=== PATIENT | male | born 1980 | race Caucasian/White ===

== ENCOUNTER → 2018-04-21 16:51 | Outpatient (CLI) | payer BC, SELFPAY ==
[2018-04-21 17:35] LABS: Add Manual Diff / Slide Review NO; Basophils Percent Auto 0.9 % (0-2); Eosinophils Percent Auto 1.7 % (2-4); Hematocrit 43.8 % (41-53); Hemoglobin 15.5 g/dL (13.5-17.5); Lymphocytes Percent Auto 30.7 % (25-40); Mean Corpuscular HGB Conc 35.5 % (30-36); Mean Corpuscular Hemoglobin 32.6 PG (26-34); Monocytes Percent Auto 6.8 % (3-14); Neutrophils Absolute Auto 4400 /uL (3000-5900); Neutrophils Percent Auto 59.9 % (50-75); Platelet Count 201 X10^3/uL (150-400); Red Blood Cell Count 4.76 X10^6/uL (4.5-5.9); Red Cell Distribution Width 12.4 % (11.6-14.8); White Blood Cell Count 7.3 X10^3/uL (4.5-11.0)
[2018-04-21 17:59] LABS: Erythrocyte Sedimentation Rate 2 MM/HR (0-15)
[2018-04-21 18:04] LABS: Uric Acid 6.5 mg/dL (3.5-8.5)
[2018-04-21 18:07] LABS: Rheumatoid Factor 14.9 IU/mL (<12.0)
[2018-04-23 20:10] LABS: ANA Screen, IFA Negative (Negative)
== END ==
PROVIDERS: Family Provider Family Medicine; PCP Family Medicine; Visit Provider Family Medicine
DX: M25.572 Pain in left ankle and joints of left foot (principal)
CPT/HCPCS: 36415; 84550; 85025; 85651; 86038; 86430

== ENCOUNTER → 2018-08-05 09:03 | Outpatient (CLI) | payer BC, SELFPAY ==
[2018-08-05 13:00] LABS: Uric Acid 5.2 mg/dL (3.5-8.5)
== END ==
PROVIDERS: Family Provider Family Medicine; PCP Family Medicine; Visit Provider Internal Medicine Rheumatology
DX: M10.00 Idiopathic gout, unspecified site (principal)
CPT/HCPCS: 36415; 84550

== ENCOUNTER → 2019-02-11 06:55 | Outpatient (CLI) | payer BC, SELFPAY ==
[2019-02-11 09:01] LABS: Cholesterol 246 mg/dL (140-199); HDL Cholesterol 47 mg/dL (40-60); LDL Cholesterol Calculated 159 mg/dL (<100); Triglycerides 198 mg/dL (35-150)
[2019-02-11 10:26] LABS: Thyroid Stimulating Hormone 2.68 uIU/mL (0.47-4.68)
[2019-02-11 12:21] LABS: Alanine Aminotransferase 39 IU/L (21-72); Albumin 4.7 g/dL (3.5-5.0); Albumin Globulin Ratio 1.8 (1.0-2.8); Alkaline Phosphatase 70 U/L (38-126); Aspartate Aminotransferase 28 IU/L (17-59); Bilirubin Total 1.2 mg/dL (0.2-1.3); Blood Urea Nitrogen 13 mg/dL (9-20); Calcium 9.7 mg/dL (8.4-10.2); Carbon Dioxide 23 mmol/L (22-32); Chloride 103 mmol/L (98-107); Estimated Glomerular Filt Rate > 60.0 mL/min (>60); Globulin 2.6 g/dL (1.7-4.1); Glucose 100 mg/dL (70-100); HEMOLYSIS < 15 (0-50); Potassium 4.2 mmol/L (3.4-5.1); Sodium 139 mmol/L (137-145); Total Protein 7.3 g/dL (6.3-8.2)
== END ==
PROVIDERS: PCP Family Medicine; Visit Provider Family Medicine
DX: E78.5 Hyperlipidemia, unspecified (principal)
CPT/HCPCS: 36415; 80053; 80061; 84443

== ENCOUNTER → 2019-03-16 08:00 | Outpatient (CLI) | payer BC, SELFPAY ==
--- NOTE | 2019-03-16 | DI.ECHO.S_ITS ---
[place] [facility]---------+ [facility] +---------+ : : [address] : : : : [id number] : : : : Phone: [phone]+ Echocardiogram Report + + :Name: KATHLEEN BAUMAN Study Date: 03/16/2019 Height: 72 in : :[facility] Exam Location: [facility] Weight: 201 lb : : Gender: Male BSA: 2.1 m2 : :: 1980 Age: 38 yrs BP: 110/78 mmHg: :Reason For Study: PALPITATIONS : : Performed By: Carlos Waddell : :Referring: SANTHOSH MONTES : + + Interpretation Summary Normal sinus rhythm. Normal LV size, wall thickness, wall motion and LV systolic function. EF is 60-65%. Normal chamber sizes. No significant valvular abnormalities. No prior study available for comparison. Procedure: A two-dimensional transthoracic echocardiogram with color flow and Doppler was performed. The study quality was technically adequate. There is no prior echocardiogram noted for this patient. The patient was in normal sinus rhythm during the exam. Left Ventricle: The left ventricle is normal in size. There is normal left ventricular wall thickness. The ejection fraction is estimated to be 60-65%. There are no focal wall motion abnormalities. Right Ventricle: The right ventricle is normal in size and function. Atria: Both atria are normal in size. The interatrial septum is intact with no evidence for an atrial septal defect. Mitral Valve: The mitral valve is normal in structure and function. There is trace mitral regurgitation. Aortic Valve: The aortic valve is trileaflet. The aortic valve opens well. No aortic regurgitation is present. Tricuspid Valve: The tricuspid valve is normal in structure and function. There is a trace or physiologic amount of tricuspid regurgitation. Pulmonary artery pressures cannot be estimated because of the lack of a measurable TR jet velocity. Pulmonic Valve: The pulmonic valve is normal in structure and function. There is trace pulmonic regurgitation. Great Vessels: The aortic root is normal size. The dimensions of the ascending aorta are normal. The pulmonary artery is normal size. The IVC is of normal diameter and collapses greater than 50% with a sniff. This suggests a low right atrial pressure of 3 mm Hg. Pericardium/ Pleura There is no pericardial effusion. There is no pleural effusion. MMode/2D Measurements & Calculations LVIDd: 5.2 cm LVOT diam: 2.4 cm LVIDs: 3.5 cm Ao root diam: 3.7 cm FS: 31.6 % Aortic Jxn: 2.8 cm EPSS: 0.44 cm asc Aorta Diam: 3.2 cm IVSd: 0.81 cm Ao Arch Diam (Prox Trans): 2.3 cm LVPWd: 0.79 cm LV holly. diameter/BSA (cm/m^2): 2.4 LV sys. diameter/BSA (cm/m^2): 1.6 LA dimension: 2.9 cm RA long axis: 4.7 cm LA A2 area: 16.4 cm2 RA area: 17.3 cm2 LA A4 area: 16.4 cm2 RA vol: 53.9 ml LA length (vol): 4.9 cm RA : 25.3 ml/m2 LA vol: 47.1 ml IVC diam: 2.0 cm LA vol index: 22.1 ml/m2 Doppler Measurements & Calculations Ao V2 max: 94.3 cm/sec LVOT Max Jim: 78.0 cm/sec Ao V2 mean: 75.3 cm/sec LV V1 max P.4 mmHg Ao max P.6 mmHg LV V1 VTI: 14.5 cm Ao mean P.4 mmHg CHLOE(I,D): 3.3 cm2 Ao V2 VTI: 19.2 cm CHLOE(V,D): 3.6 cm2 sev ratio: 0.75 CHLOE indexed to BSA (cm^2/m^2): 1.5 MV E max jim: 54.7 cm/sec PA V2 max: 54.9 cm/sec MV A max jim: 46.3 cm/sec PA V2 mean: 41.4 cm/sec MV E/A: 1.2 PA mean P.73 mmHg Med Peak E' Jim: 7.0 cm/sec PA pr(Accel): 21.6 mmHg E/E' med: 7.8 PA Accel Time: 0.13 sec Lat Peak E' Jim: 10.4 cm/sec E/E' lat: 5.2 E/e' average: 6.5 MV dec time: 0.16 sec SV(LVOT): 63.0 ml Electronically signed by: Yuni Martell M.D. on Reading Physician:03/17/2019 03:41 AM
== END ==
PROVIDERS: PCP Family Medicine; Visit Provider Family Medicine
DX: R00.2 Palpitations (principal)
CPT/HCPCS: 93306

== ENCOUNTER → 2020-12-27 16:28 | Outpatient (CLI) | payer BC, SELFPAY ==
[2020-12-27] MEDS: COVID-19 VACC #1, MRNA(MOD) 100 MCG/0.5 ML VIAL IM (16:33)
== END ==
PROVIDERS: PCP Family Medicine; Visit Provider Internal Medicine
DX: Z23 Encounter for immunization (principal)
CPT/HCPCS: 0011A; 91301

== ENCOUNTER → 2021-01-24 15:49 | Outpatient (CLI) | payer BC, SELFPAY ==
[2021-01-24] MEDS: COVID-19 VACC #2, MRNA(MOD) 100 MCG/0.5 ML VIAL IM (16:00)
== END ==
PROVIDERS: PCP Family Medicine; Visit Provider Internal Medicine
DX: Z23 Encounter for immunization (principal)
CPT/HCPCS: 0012A; 91301

== ENCOUNTER → 2021-04-22 09:07 | Outpatient (CLI) | payer BC, SELFPAY ==
--- NOTE | 2021-04-22 09:08 | DI.RAD.S_ITS ---
PROCEDURE: FL UPPER GI SERIES INDICATIONS: DYSPHAGIA COMPARISON: None. FINDINGS: KUB: Preprocedural ultrasound spec film demonstrates a normal bowel gas pattern. No suspicious abdominal calcifications. Visualized solid organ contours appear normal. Bony structures appear unremarkable. Esophagus: Esophageal mucosa is normal on air-contrast views. On single-contrast views, there is normal esophageal peristalsis. No strictures, extrinsic mass effects, or diverticula. No hiatal hernia or elicited gastroesophageal reflux. There is normal transit of a calibrated barium tablet through the esophagus. Stomach: The stomach is normally distensible, with normal rugal fold thickness. No mucosal masses or ulcers. Pylorus and duodenal bulb appear normal in morphology. Duodenal folds are normal in thickness as well. Limited evaluation of the swallowing reflex demonstrated slight premature spillage of contrast material prior to initiation of swallowing reflex and pooling in the vallecula which was easily cleared with repeat swallows. IMPRESSION: 1. Normal upper GI series. 2. Limited evaluation of swallowing demonstrated mild premature spillage and mild pooling in the vallecula which was cleared with repeat swallows. Dictated by: Susan Mandujano MD, PhD on 04/22/2021 at 10:31 Approved by: Susan Mandujano MD, PhD on 04/22/2021 at 10:33
== END ==
PROVIDERS: PCP Family Medicine; Referring Provider Family Medicine; Visit Provider Family Medicine
DX: R13.10 Dysphagia, unspecified (principal)
CPT/HCPCS: 74240

== ENCOUNTER → 2021-08-30 16:21 | Outpatient (CLI) | payer BC, SELFPAY ==
[2021-08-30] MEDS: COVID-19 VACC #3, MRNA(MOD) 50 MCG/0.25 ML VIAL IM (16:32)
== END ==
PROVIDERS: PCP Family Medicine; Visit Provider Internal Medicine
DX: Z23 Encounter for immunization (principal)
CPT/HCPCS: 0013A; 91301

== ENCOUNTER → 2021-10-24 09:25 | Outpatient (CLI) | payer BC, SELFPAY ==
[2021-10-24 10:01] LABS: COVID19 -Nasal RAPID Negative (Negative)
== END ==
PROVIDERS: PCP Family Medicine; Referring Provider Urology; Visit Provider Urology
DX: Z20.822 Contact with and (suspected) exposure to COVID-19 (principal); S30.22XA Contusion of scrotum and testes, initial encounter; Z98.52 Vasectomy status
CPT/HCPCS: 81002; 87635

== ENCOUNTER 2021-12-19 09:33 | Emergency (ER) | payer BC, SELFPAY ==
[2021-12-19 09:58] VITALS: BP 150/110; PULSE 77; RESP 14; TEMP 36.6; O2SAT 99; BMI 25.7
--- NOTE | 2021-12-19 10:01 | DI.RAD.S_ITS ---
PROCEDURE: XR FINGER LT MIN 2V INDICATIONS: smashed finger TECHNIQUE: AP hand, 2 views of the 2nd finger(s) acquired. COMPARISON: None. FINDINGS: Bones: There is a subtle oblique longitudinal lucency through the medial tuft of the 2nd distal phalanx. Bones remain normally aligned. Soft tissues: No suspicious soft tissue calcifications. No radiodense foreign bodies. IMPRESSION: 1. Probable nondisplaced 2nd digit tuft fracture. Dictated by: Angela Colón M.D. on 12/19/2021 at 10:47 Approved by: Angela Colón M.D. on 12/19/2021 at 10:49
--- NOTE | 2021-12-19 10:58 | ED_ITS ---
HPI - Extremity Injury (Upper) General Chief Complaint: Extremity Injury, Upper Stated Complaint: Smashed left pointer finger, nail coming off Time Seen by Provider: 12/19/21 10:50 Source: patient Mode of arrival: Ambulatory History of Present Illness HPI narrative: Patient is a 41-year-old male who presents with left index finger injury. He said 2 days ago he was on [place] boat smashed his finger in a door. The nail came out of the cuticle. It is becoming a little bit more painful and swollen. No redness no fevers. Related Data Home Medications Medication Instructions Recorded Confirmed allopurinol 300 mg tablet 300 mg PO DAILY 10/24/21 10/24/21 ascorbate calcium (vitamin C) 500 500 mg PO DAILY 10/24/21 10/24/21 mg tablet cholecalciferol (vitamin D3) 25 mcg PO DAILY 10/24/21 10/24/21 docusate sodium 100 mg capsule 100 mg PO BID 10/24/21 10/24/21 (Col-Rite) oxycodone-acetaminophen 5 mg-325 1 tab PO Q4-6H PRN 10/24/21 10/24/21 mg tablet sulfamethoxazole 800 1 tab PO BID 10/24/21 10/24/21 mg-trimethoprim 160 mg tablet Allergies Allergy/AdvReac Type Severity Reaction Status Date / Time No Known Drug Allergies Allergy Verified 12/19/21 09:58 Review of Systems Review of Systems Narrative: GENERAL: Denies chills,fever HEENT: Denies throat pain RESPIRATORY: Denies dyspnea, cough, wheezing CARDIOVASCULAR: Denies chest pain, palpitations GASTROINTESTINAL: Denies nausea, vomiting MUSCULOSKELETAL: Denies extremity pain, injury SKIN: See HPI NEUROLOGIC: Denies weakness, dizziness, headache, numbness 8 point review of systems is negative except for those stated above and HPI Patient History Medical History Anxiety Scrotal hematoma Surgical History H/O vasectomy History of surgery (2003) Hx of vasectomy Family History Father Age: 79 High cholesterol Grandfather Lung cancer Stroke Grandmother Stroke Mother Age: 76 Mental health problem Grandfather Pancreatic cancer Grandmother Heart disease Social History marital status: number of children: 2 household members: spouse Smoking Status: Unknown if ever smoked Smokeless tobacco user: other quit status: quit date established alcohol intake: current caffeine: Yes Smoking Status: Unknown if ever smoked alcohol intake frequency: a few times a week Substance Use Type: does not use Exam Initial Vital Signs Initial Vital Signs: Vital Signs Temperature 97.8 F 12/19/21 09:58 Pulse Rate 77 12/19/21 09:58 Respiratory Rate 14 12/19/21 09:58 Blood Pressure 150/110 H 12/19/21 09:58 Pulse Oximetry 99 12/19/21 09:58 GENERAL: Well-appearing, well-nourished and in no acute distress. CARDIOVASCULAR: peripheral pulses in tact, cap refill <2 sec RESPIRATORY: No respiratory distress, speaks in full sentences without difficulty EXTREMITIES: Normal range of motion, no clubbing or edema. Neurovascularly intact NEUROLOGICAL: Cranial nerves II through XII grossly intact. Normal gait and speech. SKIN: Left index finger for subungual hematoma about 40% of nail is nail has come out of the cuticle there is no erythema no streaking and no swelling Procedures Laceration Repair Laceration 1: Site: hand Side (If applicable): left Description: linear Local Anesthetic: lidocaine 2% Amount of anesthesia used (mL): 3 Skin layer closed with: other (chromic gut) Number of sutures: 1 Course Orders Ordered: Discontinued Medications Diphtheria/Tetanus/Acell Pertussis (Tet,Diph,Pertuss(Acell),Vac/Pf 0.5 Ml Syringe) 0.5 ml IM .ONCE ONE Stop: 12/19/21 10:30 Last Admin: 12/19/21 11:00 Dose: 0.5 ml Documented by: WALTER Lidocaine HCl (Lidocaine 2% Inj Mdv) 3 ml INJ INTRA-OP ONE Stop: 12/19/21 10:57 Last Admin: 12/19/21 11:00 Dose: 3 ml Documented by: WALTER Vital Signs Vital signs: Vital Signs - 8 hr 12/19/21 09:58 Temperature 97.8 F Pulse Rate 77 Respiratory Rate 14 Blood Pressure 150/110 H Pulse Oximetry 99 MDM - Extremity Injury (Upper) Imaging Data Extremity x-ray #1: Radiologist's Impression: PROCEDURE:? XR FINGER LT MIN 2V ? INDICATIONS:? smashed finger ? TECHNIQUE:? AP hand, 2 views of the 2nd finger(s) acquired.? ? COMPARISON:? None. ? FINDINGS:? ? Bones:? There is a subtle oblique longitudinal lucency through the medial tuft of the 2nd distal phalanx.? Bones remain normally aligned. ? Soft tissues:? No suspicious soft tissue calcifications.? No radiodense foreign bodies. ? IMPRESSION:? ? 1. Probable nondisplaced 2nd digit tuft fracture. ? ? Dictated by: Angela Colón M.D. on 12/19/2021 at 10:47 ? ? Approved by: Angela Colón M.D. on 12/19/2021 at 10:49 ? MDM Narrative Medical decision making narrative: Nail was pushed back into place and sutured in with 1 suture of chromic gut. Radiology did read the x-ray as a small tuft fracture. Patient was discharged I did call him and notify him of this finding. He is offered a splint but will fo llow up with his PCP. Discharge Plan Departure Patient Disposition: Home Clinical Impression: Avulsion of nail bed, Subungual hematoma Activity Restrictions/Additional Instructions: *You have been diagnosed with nail avulsion *What to do: Keep finger clean and dry with soap and water. Let it air out. May apply Neosporin 1-2 times daily. Nail needs to stay in place. Sutures should dissolve in about 2-3 weeks. Please see your primary care provider in about 2 weeks. *Continue to take medications as directed *Follow up with your primary care provider in 2-3 days or call [phone] *Return to ER if you should have redness swelling drainage pain or any new, worsening or concerning symptoms Prescriptions: No Action allopurinol 300 mg tablet 300 mg PO DAILY 0RF ascorbate calcium (vitamin C) 500 mg tablet 500 mg PO DAILY 0RF sulfamethoxazole-trimethoprim 800-160 mg tablet 1 tab PO BID 0RF docusate sodium [Col-Rite] 100 mg capsule 100 mg PO BID 0RF oxycodone-acetaminophen 5-325 mg tablet 1 tab PO Q4-6H PRN0RF cholecalciferol (vitamin D3) 25 mcg PO DAILY 0RF Referrals: Alycia Kelly MD [Primary Care Provider] -
[2021-12-19 11:00] VITALS: BP 135/90; PULSE 67; RESP 17; O2SAT 100
[2021-12-19] MEDS: LIDOCAINE 2% INJ MDV 3 ML INJ (11:00)
[2021-12-19] MEDS: TET,DIPH,PERTUSS(ACELL),VAC/PF 0.5 ML SYRINGE IM (11:00)
== END 2021-12-19 11:35 | disposition home or self-care (01) ==
PROVIDERS: Emergency Provider Emergency Medicine; PCP Family Medicine
DX: S61.301A Unspecified open wound of left index finger with damage to nail, initial encounter (principal); W23.0XXA Caught, crushed, jammed, or pinched between moving objects, initial encounter; Z23 Encounter for immunization
CPT/HCPCS: 12001; 73140; 90471; 99283; 90715